=== PATIENT | male | born 1975 | race Caucasian/White ===

== ENCOUNTER 2017-12-01 16:34 | Emergency (ER) | payer MEDICAID ==
[2017-12-01 19:09] VITALS: BP 108/74
== END 2017-12-01 19:09 | disposition home or self-care (01) ==
LOC: ED 16:34
DX: M22.2X1 Patellofemoral disorders, right knee (principal); W01.0XXA Fall on same level from slipping, tripping and stumbling without subsequent striking against object, initial encounter; Y93.89 Activity, other specified; Y92.89 Other specified places as the place of occurrence of the external cause; Y99.8 Other external cause status